=== PATIENT | female | born 1995 | race Caucasian/White ===

== ENCOUNTER 2017-08-27 14:11 | Emergency (ER) | payer SELFPAY ==
[2017-08-27] MEDS ORDERED: predniSONE 20 MG TAB ONE (15:12)
[2017-08-27] MEDS ORDERED: Naproxen 500 MG TAB ONE (15:12)
== END 2017-08-27 15:51 | disposition home or self-care (01) ==
LOC: ERS 14:11
DX: J30.9 Allergic rhinitis, unspecified (principal); F98.8 Other specified behavioral and emotional disorders with onset usually occurring in childhood and adolescence
CPT/HCPCS: 99283; J7506